=== PATIENT | female | born 1990 | race American Indian/Alaskan Native ===

== ENCOUNTER 2022-01-25 19:44 | Emergency (ER) | payer OTHER ==
[2022-01-25 21:52] LABS: Basophils % (Auto) 0.6 % (0.0-1.8); Eosinophils # (Auto) 0.1 K/mm3 (0.0-0.4); Eosinophils % (Auto) 1.6 % (0.0-4.3); Hematocrit 34.4 % (30.3-42.9); Hemoglobin 11.3 gm/dl (10.1-14.3); Lymphocytes # (Auto) 2.1 K/mm3 (1.2-5.4); Lymphocytes % (Auto) 27.7 % (13.4-35.0); Mean Corpuscular HGB Conc 33 % (30-34); Mean Corpuscular Volume 84 fl (79-97); Monocytes # (Auto) 0.5 K/mm3 (0.0-0.8); Monocytes % (Auto) 7.1 % (0.0-7.3); Platelet Count 260 K/mm3 (140-440); Red Blood Count 4.12 M/mm3 (3.65-5.03); Red Cell Distribution Width 13.1 % (13.2-15.2)
[2022-01-25 22:12] LABS: Alanine Aminotransferase 38 units/L (7-56); Albumin 4.1 g/dL (3.9-5); Blood Urea Nitrogen 5 mg/dL (7-17); Calcium 9.6 mg/dL (8.4-10.2); Hemolysis Index 9
[2022-01-25 22:28] LABS: BUN/Creatinine Ratio 13
--- NOTE | 2022-01-25 23:16 | Emergency Department Report ---
ED Abdominal Pain HPI - General Chief Complaint: Abdominal Pain Stated Complaint: STOMACH PAINS Time Seen by Provider: 01/25/22 23:04 Source: patient Mode of arrival: Ambulatory Limitations: No Limitations - History of Present Illness Initial Comments: Patient is 8 para 0 with 7 and miscarriages. Patient stated that she is 17 weeks . Patient presented to the ER complaining of lower abdominal pain, crampy nature with no radiation. Patient denied any vaginal bleeding. No fever or chills. MD Complaint: abdominal pain Severity scale (0 -10): 3 - Related Data Home Medications Medication Instructions Recorded Confirmed Last Taken No Known Home Medications [No 11/21/21 11/21/21 Unknown Reported Home Medications] Allergies Allergy/AdvReac Type Severity Reaction Status Date / Time No Known Allergies Allergy Verified 11/21/21 16:32 ED Review of Systems ROS: Stated complaint: STOMACH PAINS Other details as noted in HPI Comment: All other systems reviewed and negative Constitutional: denies: chills, fever Respiratory: denies: cough, shortness of breath, SOB with exertion, SOB at rest Cardiovascular: denies: chest pain, palpitations Gastrointestinal: abdominal pain. denies: nausea, vomiting, diarrhea, co nstipation, hematemesis, melena Musculoskeletal: back pain Neurological: denies: headache, weakness, numbness, paresthesias, confusion ED Past Medical Hx - Past Medical History Previous Medical History?: No - Surgical History Past Surgical History?: No - Social History Smoking Status: Never Smoker Substance Use Type: None - Medications Home Medications: Home Medications Medication Instructions Recorded Confirmed Last Taken Type No Known Home Medications [No 11/21/21 11/21/21 Unknown History Reported Home Medications] ED Physical Exam - General Limitations: No Limitations General appearance: alert, in no apparent distress - Head Head exam: Present: atraumatic, normocephalic, normal inspection - Eye Eye exam: Present: normal appearance - ENT ENT exam: Present: normal exam, normal orophraynx, mucous membranes moist - Neck Neck exam: Present: normal inspection, full ROM. Absent: tenderness, meningismus - Respiratory Respiratory exam: Present: normal lung sounds bilaterally - Cardiovascular Cardiovascular Exam: Present: regular rate, normal rhythm, normal heart sounds - GI/Abdominal GI/Abdominal exam: Present: soft, normal bowel sounds. Absent: distended, tenderness, guarding, rebound, rigid, organomegaly, mass, bruit, pulsatile mass, hernia - Extremities Exam Extremities exam: Present: normal inspection, full ROM, normal capillary refill. Absent: tenderness - Back Exam Back exam: Present: normal inspection, full ROM. Absent: CVA tenderness (R), CVA tenderness (L) - Neurological Exam Neurological exam: Present: alert, oriented X3, CN II-XII intact, normal gait, reflexes normal. Absent: motor sensory deficit - Psychiatric Psychiatric exam: Present: normal mood - Skin Skin exam: Present: warm, intact, normal color ED Course Vital Signs 01/25/22 21:28 Temperature 98.4 F Pulse Rate 82 Respiratory 18 Rate Blood Pressure 144/72 [Right] O2 Sat by Pulse 100 Oximetry ED Medical Decision Making - Lab Data Result diagrams: 01/25/22 21:37 01/25/22 21:37 - Radiology Data Radiology results: report reviewed - Medical Decision Making Patient is 8 para 0 with 7 and miscarriages. Patient stated that she is 17 weeks . Patient presented to the ER complaining of lower abdominal pain, crampy nature with no radiation. Patient denied any vaginal bleeding. No fever or chills. Labs reviewed and showed UTI. ultrasound showed a 17 weeks and 2-day intrauterine viable . Patient given prescription for Macrobid and advised to follow-up with her primary doctor in the next 2 to 3 days and to return to the ER if she develop any new symptoms. Critical care attestation.: If time is entered above; I have spent that time in minutes in the direct care of this critically ill patient, excluding procedure time. ED Disposition Clinical Impression: Abdominal pain affecting , UTI in Disposition: HOME / SELF CARE / HOMELESS Is pt being admited?: No Condition: Stable Instructions: Abdominal Pain (ED), Abdominal Pain During , and Urinary Tract Infection Referrals: [facility] [Provider Group] - 3-5 Days
[2022-01-25 23:55] LABS: Bacteria,Urine 1+ /HPF (Negative); Bilirubin,Urine NEG (Negative); Blood,Urine NEG (Negative); Color,Urine Yellow (Yellow); Protein,Urine <15 mg/dL mg/dL (Negative); Urobilinogen,Urine < 2.0 mg/dL (<2.0)
--- NOTE | 2022-01-26 00:30 | Ultrasound Report ---
US OB >= 14 weeks Fetus INDICATION / CLINICAL INFORMATION: abdominal pain/17 wks COMPARISON: Limited OB ultrasound 11/22/2021 TECHNIQUE: Using a transcutaneous probe, multiple grayscale, color Doppler, and spectral Doppler imag es of the uterus and fetus were captured and stored. FINDINGS: Based on last menstrual period of 09/27/2021, the clinical estimation of gestational age is 17 weeks 1 day. A single cephalic fetus with heart rate of 153 bpm is demonstrated. Qualitative evaluation of amniotic fluid suggests normal amount. Placenta lies posteriorly. Placental margins appear intact. Cervical canal measures 2.7 cm. The internal os appears closed. Placenta does not overlie the os. Biparietal Diameter = 3.9 cm = 17, 6 weeks, days Head Circumference = 14.2 cm = 17, 3 weeks, days Abdominal Circumference = 12.3 cm = 18, 0 weeks, days Femur Length = 2.3 cm = 17, 0 weeks, days Average Ultrasound Age (AUA) = 17, 4 weeks, days. EDC 07/01/2022. Estimated weight is 198 g. IMPRESSION: 1. Single cephalic fetus with active heart rate. 2. Endocervical canal measures 2.7 cm, the internal os appears closed. Signer Name: Schuyler Burr II, MD Signed: 01/26/2022 12:26 AM Workstation Name: [id number]
[2022-01-26 03:30] VITALS: BP 142/69
== END 2022-01-26 01:30 | disposition home or self-care (01) ==
LOC: ED 19:44
DX: O26.892 Other specified pregnancy related conditions, second trimester (principal); R10.30 Lower abdominal pain, unspecified; O23.42 Unspecified infection of urinary tract in pregnancy, second trimester; Z3A.14 14 weeks gestation of pregnancy
CPT/HCPCS: 36415; 76805; 80053; 81001; 83690; 84702; 85025; 99283

== ENCOUNTER 2022-04-14 22:05 | Outpatient (CLI) | payer OTHER ==
[2022-04-14 22:58] VITALS: BP 104/56
== END 2022-04-14 23:20 | disposition home or self-care (01) ==
LOC: TRG 22:05 → APU 22:07 → TRG 23:20
PROVIDERS: ATTEND Obstetrics & Gynecology
DX: O26.893 Other specified pregnancy related conditions, third trimester (principal); R07.9 Chest pain, unspecified; Z3A.28 28 weeks gestation of pregnancy
CPT/HCPCS: 59025

== ENCOUNTER 2022-06-24 19:36 | Inpatient (IN) | payer OTHER ==
[2022-06-24] MEDS ORDERED: ePHEDrine SULFATE 50 MG/1 ML INJ IV PRN (20:06)
[2022-06-24] MEDS ORDERED: LIDOCAINE (2%) 20 MG/1 ML VIAL 20 ML MDV INFILTRATI ONE (20:06)
[2022-06-24] MEDS ORDERED: ACETAMINOPHEN 325 MG TAB PO PRN (20:06)
[2022-06-24] MEDS ORDERED: miSOPROStol 200 MCG TAB PR PRN (20:06)
[2022-06-24] MEDS ORDERED: MINERAL OIL 30 ML ORAL LIQD PO PRN (20:06)
[2022-06-24] MEDS ORDERED: fentaNYL 100 MCG/2 ML INJ IV PRN (20:06)
[2022-06-24] MEDS ORDERED: NalbUPHINE 10 MG/1 ML INJ IV PRN (20:06)
[2022-06-24] MEDS ORDERED: LOPERAMIDE 2 MG CAP PO PRN (20:06)
[2022-06-24] MEDS ORDERED: CARBOPROST TROMETHAMINE 250 MCG/1 ML INJ IM PRN (20:06)
[2022-06-24] MEDS ORDERED: OXYTOCIN 10 UNIT/1 ML INJ IM PRN (20:06)
[2022-06-24] MEDS ORDERED: ONDANSETRON 4 MG/2 ML INJ IV PRN (20:06)
[2022-06-24] MEDS ORDERED: TERBUTALINE 1 MG/1 ML INJ SUB-Q PRN (20:06)
[2022-06-24] MEDS ORDERED: METHYLERGONOVINE MALEATE 0.2 MG/ML VIAL IM PRN (20:06)
--- NOTE | 2022-06-24 20:11 | History and Physical Report ---
History of Present Illness Date of examination: 06/24/22 Chief complaint: SROM @ term History of present illness: EDC Calculations by LMP: 07/04/2022 Past History : 8 Term Births: 0 Premature Births: 0 Living Children: 0 Para: 0 Mult. Births: 0 Prev : 0 Prev. attempt? 0 Aborta: 7 Elect. Ab: 4 Spont. Ab: 2 Ectopics: 1 # 1 Delivery date: 2010 Delivery type: SAB # 2 Delivery date: 2012 Delivery type: EAB # 3 Delivery date: 2012 Delivery type: EAB # 4 Delivery date: 2011 Delivery type: SAB # 5 Delivery date: 2017 Delivery type: ectopic Comments: s/p had left tube removed # 6 Delivery date: 2011 Delivery type: EAB # 7 Delivery date: 02/2020 Weeks Gestation: 12 Delivery type: EAB Comments: D&C, no complications. 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 % Sun Exposure: rarely No Dietary Counseling Reason: pn yes Past Medical History Anesthesia Complications: negative Anemia: negative Autoimmune Disorder: negative Bleeding Disorder: negative Blood Transfusions: negative Breast Disease: negative Diabetes: negative Heart Disease: negative Hypertension: negative Hepatitis/Liver Disease: negative Kidney Disease/UTI: negative Neurologic/Epilepsy/Migraines: negative Phlebitis/Varicosities: negative Psychiatric: negative Pulmonary Disease/Asthma: negative Thyroid Disease: negative Hospitalizations: negative Surgery (Non-novelty dipper): negative Abnormal PAP: negative EDWINA Exposure: negative Infertility: negative Uterine Anomaly: negative Uterine Surgery (not C/S): negative Other Gynecologic Problems: negative 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 Infection History HIV Risk Eval: no Personal hx. of genital herpes: yes Partner hx. of genital herpes: no Rash, Viral, or Febrile illness since last LMP? no Varicella/Chicken Pox Status: Previous Disease TB Risk: no Genetic History Congenital Heart Defect: Mom: no Dad: no Pollo Disease: Mom: no Dad: no Thalassemia Mom: no Dad: no Neural Tube Defect Mom: no Dad: no Down's Syndrome Mom: no Dad: no Rogelio-Sachs Mom: no Dad: no Sickle Cell Disease/Trait Mom: no Dad: no Hemophilia Mom: no Dad: no Muscular Dystrophy Mom: no Dad: no Cystic Fibrosis Mom: no Dad: no [place] Chorea Mom: no Dad: no Mental Retardation Mom: no Dad: no Fragile X Mom: no Dad: no Other Genetic/Chromosomal Disorder Mom: no Dad: no Child w/other defect Mom: no Dad: no Enviromental Exposures Xray Exposure: no Medication, drug, or alcohol use since LMP: no Chemical/Other Exposure: no Exposure to Cat Liter: no Hx of Parvovirus (Fifth Disease): no Occupational Exposure to Children: none Current Allergies (reviewed today): No known allergies Past History Past Medical History: other (see HPI) Past Surgical History: other (HPI) SILO MAN History: syphilis (treated), other (see HPI) Family/Genetic History: other (see HPI) Social history: no significant social history - Obstetrical History Expected Date of Delivery: 07/04/22 Actual Gestation: 38 Week(s) 4 Day(s) : 8 Para: 0 Hx # Term Pregnancies: 0 Number of Pregnancies: 0 Spontaneous Abortions: 3 Induced : 4 Number of Living Children: 0 Medications and Allergies Allergies Allergy/AdvReac Type Severity Reaction Status Date / Time No Known Allergies Allergy Verified 11/21/21 16:32 Home Medications Medication Instructions Recorded Confirmed Last Taken Type Nitrofurantoin [place]/M-Cryst 100 mg PO Q12HR #14 capsule 01/26/22 Unknown Rx [Macrobid CAP] Active Meds: Active Medications Acetaminophen (Acetaminophen 325 Mg Tab) 650 mg PO Q4H PRN PRN Reason: Pain, Mild (1-3) Carboprost Tromethamine (Carboprost Tromethamine 250 Mcg/1 Ml Inj) 250 mcg IM ONCE PRN PRN Reason: Uterine Bleeding Ephedrine Sulfate (Ephedrine Sulfate 50 Mg/1 Ml Inj) 10 mg IV Q2M PRN PRN Reason: Hypotension Fentanyl (Fentanyl 100 Mcg/2 Ml Inj) 100 mcg IV Q2H PRN PRN Reason: Pain,Severe (7-10) LABOR PAIN Oxytocin/Sodium Chloride (Pitocin/Ns 30 Unit/500ml) 30 units in 500 mls @ 2 mls/hr IV TITR ANDREY; Protocol Lactated Ringer's (Lactated Ringers) 1,000 mls @ 125 mls/hr IV DIRECT ANDREY Oxytocin/Sodium Chloride (Pitocin/Ns 30 Unit/500ml) 30 units in 500 mls @ 40 mls/hr IV TITR ANDREY; Protocol Ampicillin Sodium (Ampicillin/Ns 1 Gm/50 Ml) 1 gm in 50 mls @ 100 mls/hr IV Q4H ANDREY; Protocol Ampicillin Sodium (Ampicillin/Ns 2 Gm/100 Ml) 2 gm in 100 mls @ 100 mls/hr IV ONCE ONE; Protocol Stop: 06/24/22 21:05 Lidocaine (Lidocaine (2%) 20 Mg/1 Ml Vial 20 Ml Mdv) 20 ml INFILTRATI ONCE ONE Stop: 06/24/22 20:07 Loperamide HCl (Loperamide 2 Mg Cap) 2 mg PO ONCE PRN PRN Reason: give with Hemabate Methylergonovine Maleate (Methylergonovine Maleate 0.2 Mg/Ml Vial) 0.2 mg IM ONCE PRN PRN Reason: Uterine Bleeding Mineral Oil (Mineral Oil 30 Ml Oral Liqd) 30 ml PO QHS PRN PRN Reason: Constipation Misoprostol (Misoprostol 200 Mcg Tab) 800 mcg VT ONCE PRN PRN Reason: Uterine Bleeding Nalbuphine HCl (Nalbuphine 10 Mg/1 Ml Inj) 10 mg IV Q2H PRN PRN Reason: Pain, Moderate (4-6) Ondansetron HCl (Ondansetron 4 Mg/2 Ml Inj) 4 mg IV Q8H PRN PRN Reason: Nausea And Vomiting Oxytocin (Oxytocin 10 Unit/1 Ml Inj) 10 unit IM ONCE PRN PRN Reason: Uterine Bleeding Terbutaline Sulfate (Terbutaline 1 Mg/1 Ml Inj) 0.25 mg SUB-Q ONCE PRN PRN Reason: Hyperstimulation/Hypertonicity Review of Systems All systems: negative - Physical Exam Breasts: Positive: normal Cardiovascular: Regular rate Lungs: Positive: Normal air movement Abdomen: Positive: normal appearance, soft Genitourinary (Female): Positive: normal external genitalia, normal perenium Vulva: both: normal Vagina: Positive: normal moisture (clear amniotic fluid) Uterus: Positive: normal size, normal contour Anus/Rectum: Positive: normal perianal skin Extremities: Positive: normal Deep Tendon Reflex Grade: Normal +2 - Obstetrical FHR: category 1 Uterine Contraction Monitor Mode: External Cervical Dilatation: 4 (slightly posterior) Cervical Effacement Percentage: 80 station: -1 Uterine Contraction Pattern: Regular Uterine Tone Measurement Phase: Contraction Uterine Contraction Intensity: Moderate Results All other labs normal. Assessment and Plan 31y/o admitted @ 38 weeks for labor, SROM @ 1700 tonight. Admission orders in EMR. Epidural PRN when pt desires. - Patient Problems (1) 38 weeks gestation of Current Visit: Yes Status: Acute (2) SROM (spontaneous rupture of membranes) Current Visit: Yes Status: Acute
[2022-06-24] MEDS ORDERED: OXYTOCIN DRIP 30 UNITS/500 ML BAG IV SCH ×2 (21:00)
[2022-06-24] MEDS ORDERED: AMPICILLIN/NS 2 GM/100 ML 2 GM/100 ML BAG IV ONE (21:06)
[2022-06-24 22:42] LABS: Hematocrit 30.9 % (30.3-42.9); Hemoglobin 10.1 gm/dl (10.1-14.3); Mean Corpuscular HGB Conc 33 % (30-34); Mean Corpuscular Volume 76 fl (79-97); Platelet Count 218 K/mm3 (140-440); Red Blood Count 4.05 M/mm3 (3.65-5.03); Red Cell Distribution Width 15.2 % (13.2-15.2)
[2022-06-25] MEDS: LACTATED RINGERS 1,000 ML IV SCH ×3 (00:04→09:15)
--- NOTE | 2022-06-25 00:28 | Anesthesia Consultation ---
Anesthesia Consult and Med Hx Date of service: 06/25/22 - Airway Anesthetic Teeth Evaluation: Good ROM Head & Neck: Adequate Mental/Hyoid Distance: Adequate Mallampati Class: Class II Intubation Access Assessment: Probably Good - Pulmonary Exam CTA: Yes - Cardiac Exam Cardiac Exam: RRR - Pre-Operative Health Status ASA Pre-Surgery Classification: ASA2 Proposed Anesthetic Plan: Epidural - Pulmonary Hx Smoking: No Hx Asthma: No - Cardiovascular System Hx Hypertension: No - Central Nervous System Hx Seizures: No CVA: No Hx Psychiatric Problems: No - Endocrine Hx Renal Disease: No Hx Liver Disease: No Hx Non-Insulin Dependent Diabetes: No Hx Hypothyroidism: No Hx Hyperthyroidism: No - Hematic Hx Anemia: No Hx Sickle Cell Disease: No - Other Systems Hx Alcohol Use: No Hx Substance Use: No Hx Cancer: No Hx Obesity: No - Additional Comments Anesthesia Medical History Comments: no hx of anesthetic complications
--- NOTE | 2022-06-25 00:29 | Progress Note ---
Labor Epidural - Labor Epidural Start Time: 23:59 Stop Time: 00:09 Performed by:: HUSAM TELLEZ Procedure: Patient is requesting epidural for labor pain. H&P and labs reviewed. Procedure explained, questions answered, consent obtained. Patient placed in sitting position with monitors applied. Timeout performed immediately before start of procedure. Prep/drape in usual sterile fashion. Skin localized 3 mL 1% lidocaine at L[3]-L[4] interspace. 17-gauge Touhy epidural needle advanced to AVA with saline at [8] cm. No blood/CSF noted via epidural needle [id number]. Epidural catheter advanced to [14] cm. Negative aspiration for blood and CSF via catheter, negative response to test dose 3 ml 1.5% lidocaine w/ Epi. Sterile dressing applied followed by tape reinforcement. Patient tolerated procedure well. No immediate complications noted.
[2022-06-25] MEDS ORDERED: fentaNYL-BUPIV 2 MCG/ML-0.125% 200 MCG/100 ML BAG EPIDURAL ONE (00:38)
[2022-06-25] MEDS ORDERED: AMPICILLIN/NS 1 GM/50 ML 1 GM/50 ML BAG IV SCH (01:00)
--- NOTE | 2022-06-25 06:13 | Progress Note ---
Assessment and Plan Patient resting w/o complaints, epidural working well. SVE 6.5/90/-1, rn to increase pitocin. Pelvis feels adequate for size of baby. Anticipate - Patient Problems (1) 38 weeks gestation of Current Visit: Yes Status: Acute (2) SROM (spontaneous rupture of membranes) Current Visit: Yes Status: Acute Subjective - Subjective Date of service: 06/25/22 Principal diagnosis: IUP @ 38+5wk; SROM Interval history: EDC Calculations by LMP: 07/04/2022 Past History : 8 Term Births: 0 Premature Births: 0 Living Children: 0 Para: 0 Mult. Births: 0 Prev : 0 Prev. attempt? 0 Aborta: 7 Elect. Ab: 4 Spont. Ab: 2 Ectopics: 1 # 1 Delivery date: 2010 Delivery type: SAB # 2 Delivery date: 2012 Delivery type: EAB # 3 Delivery date: 2012 Delivery type: EAB # 4 Delivery date: 2011 Delivery type: SAB # 5 Delivery date: 2017 Delivery type: ectopic Comments: s/p had left tube removed # 6 Delivery date: 2011 Delivery type: EAB # 7 Delivery date: 02/2020 Weeks Gestation: 12 Delivery type: EAB Comments: D&C, no complications. 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 Risk Factors: Smoked Tobacco Use: Never smoker Smokeless Tobacco Use: Never Counseled to Quit/Cut Down: yes Passive Smoke Exposure: no HIV High Risk Behavior: no Exercise: yes Times/wk: 3 Type of Exercise: Walking Seatbelt Use: preg-student counselor % Sun Exposure: rarely No Dietary Counseling Reason: pn yes Past Medical History Anesthesia Complications: negative Anemia: negative Autoimmune Disorder: negative Bleeding Disorder: negative Blood Transfusions: negative Breast Disease: negative Diabetes: negative Heart Disease: negative Hypertension: negative Hepatitis/Liver Disease: negative Kidney Disease/UTI: negative Neurologic/Epilepsy/Migraines: negative Phlebitis/Varicosities: negative Psychiatric: negative Pulmonary Disease/Asthma: negative Thyroid Disease: negative Hospitalizations: negative Surgery (Non-track greaser): negative Abnormal PAP: negative EDWINA Exposure: negative Infertility: negative Uterine Anomaly: negative Uterine Surgery (not C/S): negative Other Gynecologic Problems: negative 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 Infection History HIV Risk Eval: no Personal hx. of genital herpes: yes Partner hx. of genital herpes: no Rash, Viral, or Febrile illness since last LMP? no Varicella/Chicken Pox Status: Previous Disease TB Risk: no Genetic History Congenital Heart Defect: Mom: no Dad: no Pollo Disease: Mom: no Dad: no Thalassemia Mom: no Dad: no Neural Tube Defect Mom: no Dad: no Down's Syndrome Mom: no Dad: no Rogelio-Sachs Mom: no Dad: no Sickle Cell Disease/Trait Mom: no Dad: no Hemophilia Mom: no Dad: no Muscular Dystrophy Mom: no Dad: no Cystic Fibrosis Mom: no Dad: no Yelena Chorea Mom: no Dad: no Mental Retardation Mom: no Dad: no Fragile X Mom: no Dad: no Other Genetic/Chromosomal Disorder Mom: no Dad: no Child w/other defect Mom: no Dad: no Enviromental Exposures Xray Exposure: no Medication, drug, or alcohol use since LMP: no Chemical/Other Exposure: no Exposure to Cat Liter: no Hx of Parvovirus (Fifth Disease): no Occupational Exposure to Children: none Current Allergies (reviewed today): No known allergies Patient reports: no new complaints (comfortable with epidural) Objective - Vital Signs Vital Signs: Vital Signs - 12hr 06/24/22 06/24/22 06/24/22 21:40 21:45 21:50 Temperature Pulse Rate 106 H 104 H 112 H Respiratory Rate Blood Pressure O2 Sat by Pulse 99 99 100 Oximetry O2 Sat by Pulse Oximetry [ Bilateral] 06/24/22 06/24/22 06/24/22 21:55 22:00 22:05 Temperature Pulse Rate 104 H 109 H 109 H Respiratory Rate Blood Pressure O2 Sat by Pulse 100 99 99 Oximetry O2 Sat by Pulse Oximetry [ Bilateral] 06/24/22 06/24/22 06/24/22 22:10 22:15 22:20 Temperature Pulse Rate 98 H 99 H 95 H Respiratory Rate Blood Pressure O2 Sat by Pulse 100 99 99 Oximetry O2 Sat by Pulse Oximetry [ Bilateral] 06/24/22 06/24/22 06/24/22 22:25 22:30 22:35 Temperature Pulse Rate 118 H 103 H 100 H Respiratory Rate Blood Pressure O2 Sat by Pulse 100 100 100 Oximetry O2 Sat by Pulse Oximetry [ Bilateral] 06/24/22 06/24/22 06/24/22 22:40 22:45 22:50 Temperature Pulse Rate 99 H 99 H 100 H Respiratory Rate Blood Pressure O2 Sat by Pulse 100 100 100 Oximetry O2 Sat by Pulse Oximetry [ Bilateral] 06/24/22 06/24/22 06/24/22 22:55 23:11 23:12 Temperature 97.3 F L Pulse Rate 95 H 112 H Respiratory Rate Blood Pressure O2 Sat by Pulse 100 99 Oximetry O2 Sat by Pulse Oximetry [ Bilateral] 06/24/22 06/24/22 06/24/22 23:16 23:21 23:26 Temperature Pulse Rate 116 H 105 H 118 H Respiratory Rate Blood Pressure O2 Sat by Pulse 100 100 100 Oximetry O2 Sat by Pulse Oximetry [ Bilateral] 06/24/22 06/24/22 06/24/22 23:31 23:36 23:41 Temperature Pulse Rate 101 H 106 H 116 H Respiratory Rate Blood Pressure O2 Sat by Pulse 100 99 100 Oximetry O2 Sat by Pulse Oximetry [ Bilateral] 06/24/22 06/24/22 06/24/22 23:46 23:51 23:56 Temperature Pulse Rate 112 H 109 H 108 H Respiratory Rate Blood Pressure O2 Sat by Pulse 99 100 99 Oximetry O2 Sat by Pulse Oximetry [ Bilateral] 06/25/22 06/25/22 06/25/22 00:01 00:06 00:11 Temperature Pulse Rate 116 H 131 H 107 H Respiratory Rate Blood Pressure O2 Sat by Pulse 99 99 99 Oximetry O2 Sat by Pulse Oximetry [ Bilateral] 06/25/22 06/25/22 06/25/22 00:15 00:16 00:19 Temperature Pulse Rate 100 H 99 H 96 H Respiratory Rate Blood Pressure 133/71 132/74 O2 Sat by Pulse 100 Oximetry O2 Sat by Pulse Oximetry [ Bilateral] 06/25/22 06/25/22 06/25/22 00:21 00:23 00:26 Temperature Pulse Rate 96 H 96 H 101 H Respiratory Rate Blood Pressure 120/65 O2 Sat by Pulse 99 99 Oximetry O2 Sat by Pulse Oximetry [ Bilateral] 06/25/22 06/25/22 06/25/22 00:27 00:31 00:36 Temperature Pulse Rate 100 H 99 H 99 H Respiratory Rate Blood Pressure 110/57 110/58 94/54 O2 Sat by Pulse 98 98 Oximetry O2 Sat by Pulse Oximetry [ Bilateral] 06/25/22 06/25/22 06/25/22 00:40 00:41 00:43 Temperature Pulse Rate 101 H 95 H 96 H Respiratory Rate Blood Pressure 82/45 120/63 O2 Sat by Pulse 98 Oximetry O2 Sat by Pulse Oximetry [ Bilateral] 06/25/22 06/25/22 06/25/22 00:46 00:48 00:51 Temperature Pulse Rate 93 H 92 H 93 H Respiratory Rate Blood Pressure 89/53 98/54 O2 Sat by Pulse 99 100 Oximetry O2 Sat by Pulse Oximetry [ Bilateral] 06/25/22 06/25/22 06/25/22 00:55 00:56 00:59 Temperature Pulse Rate 101 H 104 H 112 H Respiratory Rate Blood Pressure 91/49 97/52 O2 Sat by Pulse 100 Oximetry O2 Sat by Pulse Oximetry [ Bilateral] 06/25/22 06/25/22 06/25/22 01:01 01:05 01:06 Temperature Pulse Rate 100 H 113 H 103 H Respiratory Rate Blood Pressure 96/54 O2 Sat by Pulse 100 100 Oximetry O2 Sat by Pulse Oximetry [ Bilateral] 06/25/22 06/25/22 06/25/22 01:07 01:11 01:16 Temperature Pulse Rate 97 H 111 H 121 H Respiratory Rate Blood Pressure 102/54 O2 Sat by Pulse 100 100 Oximetry O2 Sat by Pulse Oximetry [ Bilateral] 06/25/22 06/25/22 06/25/22 01:21 01:23 01:26 Temperature Pulse Rate 114 H 104 H 113 H Respiratory 18 Rate Blood Pressure 97/50 O2 Sat by Pulse 100 100 Oximetry O2 Sat by Pulse Oximetry [ Bilateral] 06/25/22 06/25/22 06/25/22 01:27 01:31 01:36 Temperature Pulse Rate 107 H 105 H Respiratory Rate Blood Pressure O2 Sat by Pulse 100 100 Oximetry O2 Sat by Pulse 100 Oximetry [ Bilateral] 06/25/22 06/25/22 06/25/22 01:38 01:40 01:41 Temperature Pulse Rate 108 H 101 H 107 H Respiratory Rate Blood Pressure 88/46 92/51 O2 Sat by Pulse 100 Oximetry O2 Sat by Pulse Oximetry [ Bilateral] 06/25/22 06/25/22 06/25/22 01:46 01:51 01:54 Temperature Pulse Rate 122 H 109 H 122 H Respiratory Rate Blood Pressure 88/44 O2 Sat by Pulse 100 100 Oximetry O2 Sat by Pulse Oximetry [ Bilateral] 06/25/22 06/25/22 06/25/22 01:56 02:01 02:06 Temperature Pulse Rate 109 H 109 H 112 H Respiratory Rate Blood Pressure O2 Sat by Pulse 100 100 100 Oximetry O2 Sat by Pulse Oximetry [ Bilateral] 06/25/22 06/25/22 06/25/22 02:08 02:11 02:16 Temperature Pulse Rate 109 H 110 H 120 H Respiratory Rate Blood Pressure 80/41 O2 Sat by Pulse 100 100 Oximetry O2 Sat by Pulse Oximetry [ Bilateral] 06/25/22 06/25/22 06/25/22 02:21 02:23 02:26 Temperature Pulse Rate 119 H 100 H 105 H Respiratory Rate Blood Pressure 117/56 O2 Sat by Pulse 100 100 Oximetry O2 Sat by Pulse Oximetry [ Bilateral] 06/25/22 06/25/22 06/25/22 02:31 02:36 02:38 Temperature Pulse Rate 111 H 111 H 116 H Respiratory Rate Blood Pressure 91/53 O2 Sat by Pulse 100 100 Oximetry O2 Sat by Pulse Oximetry [ Bilateral] 06/25/22 06/25/22 06/25/22 02:41 02:46 02:51 Temperature Pulse Rate 114 H 111 H 99 H Respiratory Rate Blood Pressure O2 Sat by Pulse 100 100 100 Oximetry O2 Sat by Pulse Oximetry [ Bilateral] 06/25/22 06/25/22 06/25/22 02:53 02:56 03:01 Temperature Pulse Rate 101 H 109 H 121 H Respiratory Rate Blood Pressure 101/59 O2 Sat by Pulse 100 100 Oximetry O2 Sat by Pulse Oximetry [ Bilateral] 06/25/22 06/25/22 06/25/22 03:06 03:08 03:11 Temperature Pulse Rate 103 H 109 H 109 H Respiratory Rate Blood Pressure 105/55 O2 Sat by Pulse 100 100 Oximetry O2 Sat by Pulse Oximetry [ Bilateral] 06/25/22 06/25/22 06/25/22 03:16 03:21 03:26 Temperature Pulse Rate 105 H 115 H 111 H Respiratory Rate Blood Pressure O2 Sat by Pulse 100 100 100 Oximetry O2 Sat by Pulse Oximetry [ Bilateral] 06/25/22 06/25/22 06/25/22 03:31 03:36 03:38 Temperature Pulse Rate 109 H 116 H 105 H Respiratory Rate Blood Pressure 116/52 O2 Sat by Pulse 100 100 Oximetry O2 Sat by Pulse Oximetry [ Bilateral] 06/25/22 06/25/22 06/25/22 03:41 03:46 03:51 Temperature Pulse Rate 119 H 110 H 103 H Respiratory Rate Blood Pressure O2 Sat by Pulse 100 100 100 Oximetry O2 Sat by Pulse Oximetry [ Bilateral] 06/25/22 06/25/22 06/25/22 03:56 04:01 04:06 Temperature Pulse Rate 103 H 101 H 104 H Respiratory Rate Blood Pressure O2 Sat by Pulse 100 100 100 Oximetry O2 Sat by Pulse Oximetry [ Bilateral] 06/25/22 06/25/22 06/25/22 04:11 04:16 04:21 Temperature Pulse Rate 106 H 110 H 106 H Respiratory Rate Blood Pressure 106/59 O2 Sat by Pulse 100 100 100 Oximetry O2 Sat by Pulse Oximetry [ Bilateral] 06/25/22 06/25/22 06/25/22 04:26 04:31 04:36 Temperature Pulse Rate 104 H 114 H 100 H Respiratory Rate Blood Pressure O2 Sat by Pulse 100 100 100 Oximetry O2 Sat by Pulse Oximetry [ Bilateral] 06/25/22 06/25/22 06/25/22 04:41 04:45 04:46 Temperature Pulse Rate 107 H 102 H 104 H Respiratory Rate Blood Pressure 123/65 O2 Sat by Pulse 100 99 Oximetry O2 Sat by Pulse Oximetry [ Bilateral] 06/25/22 06/25/22 06/25/22 04:51 04:56 05:01 Temperature Pulse Rate 105 H 106 H 100 H Respiratory Rate Blood Pressure O2 Sat by Pulse 100 99 100 Oximetry O2 Sat by Pulse Oximetry [ Bilateral] 06/25/22 06/25/22 06/25/22 05:06 05:11 05:16 Temperature Pulse Rate 105 H 102 H 102 H Respiratory Rate Blood Pressure 102/55 O2 Sat by Pulse 100 100 100 Oximetry O2 Sat by Pulse Oximetry [ Bilateral] 06/25/22 06/25/22 06/25/22 05:21 05:26 05:31 Temperature Pulse Rate 94 H 98 H 98 H Respiratory Rate Blood Pressure O2 Sat by Pulse 100 100 100 Oximetry O2 Sat by Pulse Oximetry [ Bilateral] 06/25/22 06/25/22 06/25/22 05:36 05:41 05:45 Temperature Pulse Rate 97 H 97 H 100 H Respiratory Rate Blood Pressure 123/59 O2 Sat by Pulse 100 100 Oximetry O2 Sat by Pulse Oximetry [ Bilateral] 06/25/22 06/25/22 06/25/22 05:46 05:51 05:56 Temperature Pulse Rate 100 H 100 H 99 H Respiratory Rate Blood Pressure O2 Sat by Pulse 100 100 100 Oximetry O2 Sat by Pulse Oximetry [ Bilateral] 06/25/22 06:01 Temperature Pulse Rate 104 H Respiratory Rate Blood Pressure O2 Sat by Pulse 100 Oximetry O2 Sat by Pulse Oximetry [ Bilateral] - Exam Breasts: normal Cardiovascular: Regular rate Lungs: Normal air movement Abdomen: Present: normal appearance, soft Vulva: both: normal Uterus: Present: normal FHR: category 1 Uterine Contraction Monitor Mode: External Cervical Dilatation: 6.5 Cervical Effacement Percentage: 90 station: -1 Uterine Contraction Frequency (min): 3-5 Uterine Contraction Duration: 60 Uterine Contraction Pattern: Regular Uterine Tone Measurement Phase: Contraction Uterine Contraction Intensity: Moderate Extremities: normal Deep Tendon Reflex Grade: Normal +2 - Labs Labs: Abnormal Labs 06/24/22 22:20 MCV 76 L MCH 25 L Laboratory Results - last 24 hr 06/24/22 06/24/22 06/24/22 22:20 22:20 22:20 WBC 9.8 RBC 4.05 Hgb 10.1 Hct 30.9 MCV 76 L MCH 25 L MCHC 33 RDW 15.2 Plt Count 218 Syphilis IgG/IgM Ab Nonreactive Blood Type B POSITIVE Antibody Screen Negative
[2022-06-25] MEDS ORDERED: NALOXONE 0.4 MG/1 ML INJ IV PRN (07:05)
[2022-06-25] MEDS ORDERED: ePHEDrine SULFATE 50 MG/1 ML INJ IV PRN (07:05)
--- NOTE | 2022-06-25 07:25 | Progress Note ---
Assessment and Plan A: 31 y.o. @ 38.5 wks, SROM. - Patient Problems (1) 38 weeks gestation of Current Visit: Yes Status: Acute Plan to address problem: Continue to monitor status through EFM. (2) SROM (spontaneous rupture of membranes) Current Visit: Yes Status: Acute Plan to address problem: Continue with Pitiocin augmentation. Limit vaginal exams. Anticipate . Subjective - Subjective Date of service: 06/25/22 Principal diagnosis: IUP @ 38+5wk; SROM Interval history: Pt comfortable with epidural. Patient reports: loss of fluid, movement normal Objective - Vital Signs Vital Signs: Vital Signs - 12hr 06/24/22 06/24/22 06/24/22 21:40 21:45 21:50 Temperature Pulse Rate 106 H 104 H 112 H Respiratory Rate Blood Pressure O2 Sat by Pulse 99 99 100 Oximetry O2 Sat by Pulse Oximetry [ Bilateral] 06/24/22 06/24/22 06/24/22 21:55 22:00 22:05 Temperature Pulse Rate 104 H 109 H 109 H Respiratory Rate Blood Pressure O2 Sat by Pulse 100 99 99 Oximetry O2 Sat by Pulse Oximetry [ Bilateral] 06/24/22 06/24/22 06/24/22 22:10 22:15 22:20 Temperature Pulse Rate 98 H 99 H 95 H Respiratory Rate Blood Pressure O2 Sat by Pulse 100 99 99 Oximetry O2 Sat by Pulse Oximetry [ Bilateral] 06/24/22 06/24/22 06/24/22 22:25 22:30 22:35 Temperature Pulse Rate 118 H 103 H 100 H Respiratory Rate Blood Pressure O2 Sat by Pulse 100 100 100 Oximetry O2 Sat by Pulse Oximetry [ Bilateral] 06/24/22 06/24/22 06/24/22 22:40 22:45 22:50 Temperature Pulse Rate 99 H 99 H 100 H Respiratory Rate Blood Pressure O2 Sat by Pulse 100 100 100 Oximetry O2 Sat by Pulse Oximetry [ Bilateral] 06/24/22 06/24/22 06/24/22 22:55 23:11 23:12 Temperature 97.3 F L Pulse Rate 95 H 112 H Respiratory Rate Blood Pressure O2 Sat by Pulse 100 99 Oximetry O2 Sat by Pulse Oximetry [ Bilateral] 06/24/22 06/24/22 06/24/22 23:16 23:21 23:26 Temperature Pulse Rate 116 H 105 H 118 H Respiratory Rate Blood Pressure O2 Sat by Pulse 100 100 100 Oximetry O2 Sat by Pulse Oximetry [ Bilateral] 06/24/22 06/24/22 06/24/22 23:31 23:36 23:41 Temperature Pulse Rate 101 H 106 H 116 H Respiratory Rate Blood Pressure O2 Sat by Pulse 100 99 100 Oximetry O2 Sat by Pulse Oximetry [ Bilateral] 06/24/22 06/24/22 06/24/22 23:46 23:51 23:56 Temperature Pulse Rate 112 H 109 H 108 H Respiratory Rate Blood Pressure O2 Sat by Pulse 99 100 99 Oximetry O2 Sat by Pulse Oximetry [ Bilateral] 06/25/22 06/25/22 06/25/22 00:01 00:06 00:11 Temperature Pulse Rate 116 H 131 H 107 H Respiratory Rate Blood Pressure O2 Sat by Pulse 99 99 99 Oximetry O2 Sat by Pulse Oximetry [ Bilateral] 06/25/22 06/25/22 06/25/22 00:15 00:16 00:19 Temperature Pulse Rate 100 H 99 H 96 H Respiratory Rate Blood Pressure 133/71 132/74 O2 Sat by Pulse 100 Oximetry O2 Sat by Pulse Oximetry [ Bilateral] 06/25/22 06/25/22 06/25/22 00:21 00:23 00:26 Temperature Pulse Rate 96 H 96 H 101 H Respiratory Rate Blood Pressure 120/65 O2 Sat by Pulse 99 99 Oximetry O2 Sat by Pulse Oximetry [ Bilateral] 06/25/22 06/25/22 06/25/22 00:27 00:31 00:36 Temperature Pulse Rate 100 H 99 H 99 H Respiratory Rate Blood Pressure 110/57 110/58 94/54 O2 Sat by Pulse 98 98 Oximetry O2 Sat by Pulse Oximetry [ Bilateral] 06/25/22 06/25/22 06/25/22 00:40 00:41 00:43 Temperature Pulse Rate 101 H 95 H 96 H Respiratory Rate Blood Pressure 82/45 120/63 O2 Sat by Pulse 98 Oximetry O2 Sat by Pulse Oximetry [ Bilateral] 06/25/22 06/25/22 06/25/22 00:46 00:48 00:51 Temperature Pulse Rate 93 H 92 H 93 H Respiratory Rate Blood Pressure 89/53 98/54 O2 Sat by Pulse 99 100 Oximetry O2 Sat by Pulse Oximetry [ Bilateral] 06/25/22 06/25/2222 00:55 00:56 00:59 Temperature Pulse Rate 101 H 104 H 112 H Respiratory Rate Blood Pressure 91/49 97/52 O2 Sat by Pulse 100 Oximetry O2 Sat by Pulse Oximetry [ Bilateral] 06/25/22 06/25/22 06/25/22 01:01 01:05 01:06 Temperature Pulse Rate 100 H 113 H 103 H Respiratory Rate Blood Pressure 96/54 O2 Sat by Pulse 100 100 Oximetry O2 Sat by Pulse Oximetry [ Bilateral] 06/25/22 06/25/22 06/25/22 01:07 01:11 01:16 Temperature Pulse Rate 97 H 111 H 121 H Respiratory Rate Blood Pressure 102/54 O2 Sat by Pulse 100 100 Oximetry O2 Sat by Pulse Oximetry [ Bilateral] 06/25/22 06/25/22 06/25/22 01:21 01:23 01:26 Temperature Pulse Rate 114 H 104 H 113 H Respiratory 18 Rate Blood Pressure 97/50 O2 Sat by Pulse 100 100 Oximetry O2 Sat by Pulse Oximetry [ Bilateral] 06/25/22 06/25/22 06/25/22 01:27 01:31 01:36 Temperature Pulse Rate 107 H 105 H Respiratory Rate Blood Pressure O2 Sat by Pulse 100 100 Oximetry O2 Sat by Pulse 100 Oximetry [ Bilateral] 06/25/22 06/25/22 06/25/22 01:38 01:40 01:41 Temperature Pulse Rate 108 H 101 H 107 H Respiratory Rate Blood Pressure 88/46 92/51 O2 Sat by Pulse 100 Oximetry O2 Sat by Pulse Oximetry [ Bilateral] 06/25/22 06/25/22 06/25/22 01:46 01:51 01:54 Temperature Pulse Rate 122 H 109 H 122 H Respiratory Rate Blood Pressure 88/44 O2 Sat by Pulse 100 100 Oximetry O2 Sat by Pulse Oximetry [ Bilateral] 06/25/22 06/25/22 06/25/22 01:56 02:01 02:06 Temperature Pulse Rate 109 H 109 H 112 H Respiratory Rate Blood Pressure O2 Sat by Pulse 100 100 100 Oximetry O2 Sat by Pulse Oximetry [ Bilateral] 06/25/22 06/25/22 06/25/22 02:08 02:11 02:16 Temperature Pulse Rate 109 H 110 H 120 H Respiratory Rate Blood Pressure 80/41 O2 Sat by Pulse 100 100 Oximetry O2 Sat by Pulse Oximetry [ Bilateral] 06/25/22 06/25/22 06/25/22 02:21 02:23 02:26 Temperature Pulse Rate 119 H 100 H 105 H Respiratory Rate Blood Pressure 117/56 O2 Sat by Pulse 100 100 Oximetry O2 Sat by Pulse Oximetry [ Bilateral] 06/25/22 06/25/22 06/25/22 02:31 02:36 02:38 Temperature Pulse Rate 111 H 111 H 116 H Respiratory Rate Blood Pressure 91/53 O2 Sat by Pulse 100 100 Oximetry O2 Sat by Pulse Oximetry [ Bilateral] 06/25/22 06/25/22 06/25/22 02:41 02:46 02:51 Temperature Pulse Rate 114 H 111 H 99 H Respiratory Rate Blood Pressure O2 Sat by Pulse 100 100 100 Oximetry O2 Sat by Pulse Oximetry [ Bilateral] 06/25/22 06/25/22 06/25/22 02:53 02:56 03:01 Temperature Pulse Rate 101 H 109 H 121 H Respiratory Rate Blood Pressure 101/59 O2 Sat by Pulse 100 100 Oximetry O2 Sat by Pulse Oximetry [ Bilateral] 06/25/22 06/25/22 06/25/22 03:06 03:08 03:11 Temperature Pulse Rate 103 H 109 H 109 H Respiratory Rate Blood Pressure 105/55 O2 Sat by Pulse 100 100 Oximetry O2 Sat by Pulse Oximetry [ Bilateral] 06/25/22 06/25/22 06/25/22 03:16 03:21 03:26 Temperature Pulse Rate 105 H 115 H 111 H Respiratory Rate Blood Pressure O2 Sat by Pulse 100 100 100 Oximetry O2 Sat by Pulse Oximetry [ Bilateral] 06/25/22 06/25/22 06/25/22 03:31 03:36 03:38 Temperature Pulse Rate 109 H 116 H 105 H Respiratory Rate Blood Pressure 116/52 O2 Sat by Pulse 100 100 Oximetry O2 Sat by Pulse Oximetry [ Bilateral] 06/25/22 06/25/22 06/25/22 03:41 03:46 03:51 Temperature Pulse Rate 119 H 110 H 103 H Respiratory Rate Blood Pressure O2 Sat by Pulse 100 100 100 Oximetry O2 Sat by Pulse Oximetry [ Bilateral] 06/25/22 06/25/22 06/25/22 03:56 04:01 04:06 Temperature Pulse Rate 103 H 101 H 104 H Respiratory Rate Blood Pressure O2 Sat by Pulse 100 100 100 Oximetry O2 Sat by Pulse Oximetry [ Bilateral] 06/25/22 06/25/22 06/25/22 04:11 04:16 04:21 Temperature Pulse Rate 106 H 110 H 106 H Respiratory Rate Blood Pressure 106/59 O2 Sat by Pulse 100 100 100 Oximetry O2 Sat by Pulse Oximetry [ Bilateral] 06/25/22 06/25/22 06/25/22 04:26 04:31 04:36 Temperature Pulse Rate 104 H 114 H 100 H Respiratory Rate Blood Pressure O2 Sat by Pulse 100 100 100 Oximetry O2 Sat by Pulse Oximetry [ Bilateral] 06/25/22 06/25/22 06/25/22 04:41 04:45 04:46 Temperature Pulse Rate 107 H 102 H 104 H Respiratory Rate Blood Pressure 123/65 O2 Sat by Pulse 100 99 Oximetry O2 Sat by Pulse Oximetry [ Bilateral] 06/25/22 06/25/22 06/25/22 04:51 04:56 05:01 Temperature Pulse Rate 105 H 106 H 100 H Respiratory Rate Blood Pressure O2 Sat by Pulse 100 99 100 Oximetry O2 Sat by Pulse Oximetry [ Bilateral] 06/25/22 06/25/22 06/25/22 05:06 05:11 05:16 Temperature Pulse Rate 105 H 102 H 102 H Respiratory Rate Blood Pressure 102/55 O2 Sat by Pulse 100 100 100 Oximetry O2 Sat by Pulse Oximetry [ Bilateral] 06/25/22 06/25/22 06/25/22 05:21 05:26 05:31 Temperature Pulse Rate 94 H 98 H 98 H Respiratory Rate Blood Pressure O2 Sat by Pulse 100 100 100 Oximetry O2 Sat by Pulse Oximetry [ Bilateral] 06/25/22 06/25/22 06/25/22 05:36 05:41 05:45 Temperature Pulse Rate 97 H 97 H 100 H Respiratory Rate Blood Pressure 123/59 O2 Sat by Pulse 100 100 Oximetry O2 Sat by Pulse Oximetry [ Bilateral] 06/25/22 06/25/22 06/25/22 05:46 05:51 05:56 Temperature Pulse Rate 100 H 100 H 99 H Respiratory Rate Blood Pressure O2 Sat by Pulse 100 100 100 Oximetry O2 Sat by Pulse Oximetry [ Bilateral] 06/25/22 06/25/22 06/25/22 06:01 06:06 06:11 Temperature Pulse Rate 104 H 102 H 103 H Respiratory Rate Blood Pressure O2 Sat by Pulse 100 99 98 Oximetry O2 Sat by Pulse Oximetry [ Bilateral] 06/25/22 06/25/22 06/25/22 06:16 06:21 06:26 Temperature Pulse Rate 98 H 99 H 96 H Respiratory Rate Blood Pressure 111/57 O2 Sat by Pulse 99 99 99 Oximetry O2 Sat by Pulse Oximetry [ Bilateral] 06/25/22 06/25/22 06/25/22 06:31 06:36 06:41 Temperature Pulse Rate 104 H 115 H 105 H Respiratory Rate Blood Pressure O2 Sat by Pulse 100 98 98 Oximetry O2 Sat by Pulse Oximetry [ Bilateral] 06/25/22 06/25/22 06/25/22 06:46 06:47 06:51 Temperature Pulse Rate 107 H 100 H 101 H Respiratory Rate Blood Pressure 119/58 O2 Sat by Pulse 99 100 Oximetry O2 Sat by Pulse Oximetry [ Bilateral] 06/25/22 06/25/22 06/25/22 06:56 07:01 07:06 Temperature Pulse Rate 97 H 96 H 101 H Respiratory Rate Blood Pressure O2 Sat by Pulse 99 99 98 Oximetry O2 Sat by Pulse Oximetry [ Bilateral] 06/25/22 06/25/22 06/25/22 07:11 07:15 07:16 Temperature Pulse Rate 105 H 97 H 97 H Respiratory Rate Blood Pressure 120/65 O2 Sat by Pulse 98 99 Oximetry O2 Sat by Pulse Oximetry [ Bilateral] - Exam Narrative Exam: Repositioned to left lateral position. Previously examined around 0638 and was 6.5/90/-1. Cardiovascular: Regular rate Lungs: Normal air movement Abdomen: Present: normal appearance, soft Uterus: Present: normal FHR: category 1 Uterine Contraction Monitor Mode: External Uterine Contraction Pattern: Regular Uterine Tone Measurement Phase: Resting Uterine Contraction Intensity: Moderate - Labs Labs: Abnormal Labs 06/24/22 22:20 MCV 76 L MCH 25 L Laboratory Results - last 24 hr 06/24/22 06/24/22 06/24/22 22:20 22:20 22:20 WBC 9.8 RBC 4.05 Hgb 10.1 Hct 30.9 MCV 76 L MCH 25 L MCHC 33 RDW 15.2 Plt Count 218 Syphilis IgG/IgM Ab Nonreactive Blood Type B POSITIVE Antibody Screen Negative
[2022-06-25] MEDS ORDERED: fentaNYL-BUPIV 2 MCG/ML-0.125% 200 MCG/100 ML BAG EPIDURAL SCH (08:00)
--- NOTE | 2022-06-25 08:25 | Event Note ---
Date: 06/25/22 (Vaginal pressure) Pt with c/o more vaginal pressure. Cervical exam /. Pt re-positioned in high fowlers.
[2022-06-25] MEDS ORDERED: LIDOCAINE MPF (2%) 20 MG/1 ML VIAL 5 ML ONE (11:31)
--- NOTE | 2022-06-25 16:43 | Procedure Note ---
OB Delivery Note - Delivery Date of Delivery: 06/25/22 Family Law Specialist: WISAM DEL CID (Proctored by Keturah Fnag) Estimated blood loss: 200cc - Vaginal Delivery presentation: vertex Delivery position: OA Intrapartum events: none Delivery augmentation: pitocin Delivery monitor: external FHT, external uterine Route of delivery: Delivery placenta: spontaneous Delivery cord: 3 umbilical vessels Episiotomy: none Delivery laceration: 1st degree Anesthesia: epidural Delivery comments: of a viable male infant. AGARS 8/. Male born over intact perineum, shoulders delivered without difficulty. placed skin to skin on mom's abdomen. 3 vessel cord clamped and cut by FOB. Placenta delivered intact and complete. Pitocin IV started. Uterine tone adequate. Perineum, vagina, and cervix inspected. 1st degree perineum laceration noted, no repair needed good hemostasis noted. Post delivery pt stable. Apgars 8/9, wt 7#11oz, EBL 200. All counts correct. mother and remain LDR stable. - Infant A at 1 minute: 8 (wgt 7#11oz (Lamar)) at 5 minutes: 9 Infant Gender: Male
[2022-06-25] MEDS ORDERED: diphenhydrAMINE 25 MG CAP PO PRN (18:17)
[2022-06-25] MEDS ORDERED: ACETAMINOPHEN 325 MG TAB PO PRN (18:17)
[2022-06-25] MEDS ORDERED: PROMETHAZINE 25 MG RECT SUPP PR PRN (18:17)
[2022-06-25] MEDS ORDERED: WITCH HAZEL/ GLYCERIN PAD TP PRN (18:17)
[2022-06-25] MEDS ORDERED: PROMETHAZINE 25 MG TAB PO PRN (18:17)
[2022-06-25] MEDS ORDERED: MAGNESIUM HYDROXIDE (MOM) ORAL LIQD UDC PO PRN (18:17)
[2022-06-25] MEDS ORDERED: LANOLIN/ZINC/DIMETHICONE (LANSINOH) 7 GM TP PRN ×2 (18:17)
[2022-06-25] MEDS ORDERED: oxyCODONE /ACETAMINOPHEN 5-325MG TAB PO PRN (18:17)
[2022-06-25] MEDS ORDERED: BENZOCAINE/MENTHOL 20/0.5% TOP SPRAY 56 GM TP PRN (18:17)
[2022-06-25] MEDS ORDERED: ONDANSETRON 4 MG/2 ML INJ IV PRN (18:17)
[2022-06-25] MEDS ORDERED: OXYTOCIN DRIP 30 UNITS/500 ML BAG IV SCH (19:00)
[2022-06-25 21:02] LABS: Hematocrit 31.7 % (30.3-42.9); Hemoglobin 10.1 gm/dl (10.1-14.3); Mean Corpuscular HGB Conc 32 % (30-34); Mean Corpuscular Volume 77 fl (79-97); Platelet Count 263 K/mm3 (140-440); Red Blood Count 4.13 M/mm3 (3.65-5.03); Red Cell Distribution Width 15.1 % (13.2-15.2)
[2022-06-25 21:12] LABS: Alanine Aminotransferase 17 units/L (7-56); Uric Acid 5.6 mg/dL (3.5-7.6)
[2022-06-25] MEDS ORDERED: MAGNESIUM SULFATE 40GM/1000ML 40 GM/1,000 ML BAG IV SCH (23:45)
[2022-06-25] MEDS ORDERED: MAGNESIUM SULFATE 4 GM/100 ML BAG IV ONE (23:52)
[2022-06-26] MEDS ORDERED: LACTATED RINGERS 1,000 ML IV SCH (00:15)
[2022-06-26] MEDS ORDERED: hydrALAZINE 20 MG/1 ML INJ IV ONE (04:25)
[2022-06-26 09:10] LABS: Hematocrit 33.1 % (30.3-42.9); Hemoglobin 10.6 gm/dl (10.1-14.3)
[2022-06-26] MEDS ORDERED: PRENATAL VIT27-FE FUMARATE-FOLIC ACID VIT TAB PO SCH (10:00)
--- NOTE | 2022-06-26 10:11 | Progress Note ---
Assessment and Plan - Patient Problems (1) Pre-eclampsia Current Visit: Yes Status: Acute Plan to address problem: -cont mag -cont bp meds -up to mother baby later tonight after 24hrs of mag completed (2) (normal spontaneous vaginal delivery) Current Visit: Yes Status: Acute Plan to address problem: -routine pp care Subjective - Subjective Date of service: 06/26/22 Principal diagnosis: PPD#1 s/p 2)per E Interval history: Pt doing well no MALIK or blurry vision at this time. Magnesium is infusing. BP stable in mild range. Labetalol ordered to be started this am at 10. Plan of care d/w pt and all questions were addressed and answered. Patient reports: appetite normal, voiding normally, pain well controlled, no dizzy ambulation Davis: doing well Objective - Vital Signs Latest vital signs: Vital Signs Temp Pulse Resp BP Pulse Ox 06/26/22 10:02 92 06/26/22 10:01 95 H 140/83 06/26/22 09:56 88 06/26/22 09:55 144 H 89 06/26/22 09:50 86 06/26/22 09:46 95 H 142/85 06/26/22 09:45 84 06/26/22 09:43 139 H 85 06/26/22 09:40 159 H 86 06/26/22 09:37 163 H 85 06/26/22 09:35 85 06/26/22 09:31 92 H 149/86 06/26/22 09:29 93 06/26/22 09:27 168 H 85 06/26/22 09:23 85 06/26/22 09:19 149 H 87 06/26/22 09:18 154 H 84 06/26/22 09:16 96 H 146/87 06/26/22 09:12 88 06/26/22 09:07 170 H 85 06/26/22 09:02 182 H 84 06/26/22 09:01 99 H 138/80 06/26/22 08:59 144 H 83 L 06/26/22 08:57 83 L 06/26/22 08:52 69 86 06/26/22 08:47 78 L 06/26/22 08:46 100 H 128/74 06/26/22 08:43 73 79 L 06/26/22 08:41 74 L 06/26/22 08:36 78 L 06/26/22 08:35 112 H 81 L 06/26/22 08:31 106 H 131/75 0 L 06/26/22 08:26 141 H 79 L 06/26/22 08:25 88 06/26/22 08:20 197 H 80 L 06/26/22 08:16 108 H 136/76 06/26/22 08:15 50 L 84 06/26/22 08:10 101 H 83 L 06/26/22 08:05 197 H 78 L 06/26/22 08:01 86 137/69 06/26/22 08:00 66 81 L 06/26/22 07:59 78 L 06/26/22 07:55 188 H 79 L 06/26/22 07:54 80 L 06/26/22 07:49 78 L 06/26/22 07:47 136 H 139/68 78 L 06/26/22 07:44 51 L 78 L 06/26/22 07:39 55 L 81 L 06/26/22 07:38 79 L 06/26/22 07:34 173 H 83 L 06/26/22 07:33 58 L 78 L 06/26/22 07:31 96 H 140/78 06/26/22 07:28 181 H 80 L 06/26/22 07:27 73 L 06/26/22 07:22 185 H 77 L 06/26/22 07:20 83 81 L 06/26/22 07:17 81 L 06/26/22 07:16 108 H 148/72 06/26/22 07:15 37 L 77 L 06/26/22 07:12 79 L 06/26/22 07:08 69 100 06/26/22 07:02 77 100 06/26/22 07:01 108 H 147/79 06/26/22 06:56 50 L 96 06/26/22 06:51 96 H 99 06/26/22 06:50 56 L 91 06/26/22 06:47 115 H 164/85 06/26/22 06:46 72 82 L 06/26/22 06:41 82 83 L 06/26/22 06:38 26 L 06/26/22 06:33 86 06/26/22 06:32 110 H 153/74 06/26/22 06:31 83 71 L 06/26/22 06:26 73 72 L 06/26/22 06:21 68 73 L 06/26/22 06:16 112 H 146/113 83 L 06/26/22 06:11 43 L 82 L 06/26/22 06:09 83 L 06/26/22 06:04 112 H 90 06/26/22 06:01 115 H 152/85 06/26/22 05:59 43 L 78 L 06/26/22 05:54 53 L 69 L 06/26/22 05:49 69 77 L 06/26/22 05:47 125 H 160/77 06/26/22 05:43 43 L 67 L 06/26/22 05:38 173 H 63 L 06/26/22 05:37 82 L 06/26/22 05:33 98 H 75 L 06/26/22 05:31 107 H 152/82 68 L 06/26/22 05:16 101 H 152/80 06/26/22 05:12 101 H 84 06/26/22 05:10 56 L 78 L 06/26/22 05:07 101 H 97 06/26/22 05:02 101 H 97 06/26/22 05:01 105 H 150/83 06/26/22 04:57 114 H 96 06/26/22 04:52 108 H 96 06/26/22 04:47 111 H 98 06/26/22 04:46 112 H 145/75 06/26/22 04:42 104 H 99 06/26/22 04:36 102 H 91 06/26/22 04:35 104 H 97 06/26/22 04:31 98 H 157/83 06/26/22 04:30 98 H 100 06/26/22 04:25 115 H 99 06/26/22 04:20 103 H 99 06/26/22 04:15 98 H 99 06/26/22 04:10 93 H 134/73 99 06/26/22 04:05 95 H 99 06/26/22 04:00 99 H 99 06/26/22 03:55 99 H 173/84 100 06/26/22 03:53 95 H 161/81 06/26/22 03:50 100 06/26/22 03:45 115 H 97 06/26/22 03:40 109 H 166/77 100 06/26/22 03:35 110 H 99 06/26/22 03:30 120 H 100 06/26/22 03:25 108 H 166/79 100 06/26/22 03:20 109 H 100 06/26/22 03:15 108 H 99 06/26/22 03:10 122 H 156/96 99 06/26/22 03:05 90 97 06/26/22 03:00 90 99 06/26/22 02:55 113 H 99 06/26/22 02:50 101 H 97 06/26/22 02:45 91 H 100 06/26/22 02:40 93 H 148/81 100 06/26/22 02:35 94 H 100 06/26/22 02:31 110 H 89 06/26/22 02:30 107 H 100 06/26/22 02:25 100 H 175/86 90 06/26/22 02:20 98 H 96 06/26/22 02:15 109 H 98 06/26/22 02:10 99 H 146/74 97 06/26/22 02:05 101 H 99 06/26/22 02:00 99 H 69 L 06/26/22 01:55 102 H 96 06/26/22 01:54 96 H 152/76 06/26/22 01:50 98 H 99 06/26/22 01:49 98 H 150/76 92 06/26/22 01:45 99 H 97 06/26/22 01:44 100 H 149/71 06/26/22 01:42 98 H 94 06/26/22 01:40 98 H 98 06/26/22 01:39 100 H 165/79 06/26/22 01:36 51 L 74 L 06/26/22 01:35 101 H 99 06/26/22 01:34 103 H 145/79 06/26/22 01:30 105 H 98 06/26/22 01:29 105 H 142/99 06/26/22 01:25 104 H 100 06/26/22 01:24 109 H 147/81 06/26/22 01:20 101 H 99 06/26/22 01:19 100 H 141/77 06/26/22 01:15 101 H 100 06/26/22 01:14 100 H 143/81 06/26/22 01:13 103 H 141/73 06/26/22 01:10 93 H 100 06/26/22 01:09 86 06/26/22 01:05 64 83 L 06/26/22 01:03 113 H 80 L 06/26/22 00:58 72 149/74 85 06/26/22 00:54 65 88 06/26/22 00:53 83 L 06/26/22 00:50 95 H 146/67 06/26/22 00:49 89 86 06/26/22 00:48 70 L 06/26/22 00:43 101 H 152/110 87 06/26/22 00:37 197 H 79 L 06/26/22 00:23 79 79 L 06/26/22 00:21 77 L 06/26/22 00:18 72 79 L 06/26/22 00:16 79 L 06/26/22 00:11 80 79 L 06/26/22 00:10 78 L 06/26/22 00:05 79 79 L 06/25/22 23:59 77 79 L 06/25/22 23:54 78 80 L 06/25/22 23:48 90 78 L 06/25/22 23:43 111 H 170/74 06/25/22 23:41 75 83 L 06/25/22 23:35 95 H 82 L 06/25/22 23:34 162 H 84 06/25/22 23:29 91 H 80 L 06/25/22 23:20 75 80 L 06/25/22 23:19 81 L 06/25/22 23:14 93 H 80 L 06/25/22 23:13 120 H 158/74 06/25/22 23:09 79 L 06/25/22 23:08 92 H 81 L 06/25/22 23:04 102 H 81 L 06/25/22 22:58 103 H 159/71 06/25/22 22:55 82 L 06/25/22 22:49 76 L 06/25/22 22:44 82 L 06/25/22 22:43 108 H 164/73 06/25/22 22:39 54 L 81 L 06/25/22 22:38 74 82 L 06/25/22 22:33 77 80 L 06/25/22 22:26 186 H 81 L 06/25/22 22:25 82 L 06/25/22 22:19 53 L 80 L 06/25/22 22:14 79 L 06/25/22 22:13 136 H 143/69 79 L 06/25/22 22:07 131 H 78 L 06/25/22 22:02 50 L 77 L 06/25/22 21:59 113 H 141/77 06/25/22 21:57 118 H 89 06/25/22 21:49 117 H 94 06/25/22 21:48 53 L 83 L 06/25/22 21:44 100 H 96 06/25/22 21:43 98 H 136/75 06/25/22 21:39 98 H 100 06/25/22 21:34 108 H 100 06/25/22 21:33 93 H 157/74 06/25/22 21:29 65 89 06/25/22 21:24 72 L 06/25/22 21:22 65 73 L 06/25/22 21:18 73 L 06/25/22 21:17 77 80 L 06/25/22 21:13 86 06/25/22 21:12 53 L 87 06/25/22 21:08 60 L 06/25/22 21:05 32 L 83 L 06/25/22 21:03 78 L 06/25/22 21:00 68 84 06/25/22 20:58 84 06/25/22 20:53 106 H 82 L 06/25/22 20:52 82 L 06/25/22 20:24 51 L 56 L 06/25/22 20:20 67 90 06/25/22 20:18 79 L 06/25/22 20:11 47 L 79 L 06/25/22 20:06 45 L 89 06/25/22 20:01 60 80 L 06/25/22 20:00 72 L 06/25/22 19:58 106 H 128/66 06/25/22 19:56 96 H 81 L 06/25/22 19:55 79 L 06/25/22 19:44 97 H 98 06/25/22 19:43 113 H 143/76 06/25/22 19:39 111 H 98 06/25/22 19:34 112 H 98 06/25/22 19:33 105 H 138/71 06/25/22 19:22 42 L 69 L 06/25/22 19:17 69 L 06/25/22 19:16 81 95 08/05/22 19:11 105 H 83 L 06/25/22 19:10 83 L 06/25/22 19:06 42 L 83 L 06/25/22 19:01 65 91 06/25/22 19:00 149 H 84 06/25/22 18:56 98 06/25/22 18:55 83 L 06/25/22 18:48 114 H 100 06/25/22 18:43 111 H 132/74 100 06/25/22 18:39 64 L 06/25/22 18:34 85 06/25/22 18:31 52 L 100 06/25/22 18:27 52 L 82 L 06/25/22 18:22 124 H 99 06/25/22 18:17 184 H 87 06/25/22 18:13 122 H 158/79 06/25/22 18:11 90 83 L 06/25/22 18:06 74 161/89 100 06/25/22 18:01 148 H 76 L 06/25/22 17:58 55 L 154/86 100 06/25/22 17:55 76 L 06/25/22 17:50 82 L 06/25/22 17:48 77 87 06/25/22 17:44 67 L 06/25/22 17:42 123 H 159/87 06/25/22 17:39 125 H 151/81 06/25/22 17:37 77 93 06/25/22 17:28 61 86 06/25/22 17:27 126 H 161/75 06/25/22 17:25 187 H 84 06/25/22 17:23 75 88 06/25/22 17:19 68 83 L 06/25/22 17:18 92 H 156/78 82 L 06/25/22 17:14 102 H 82 L 06/25/22 17:13 127 H 166/88 06/25/22 17:09 122 H 99 06/25/22 17:04 120 H 98 06/25/22 16:59 116 H 99 06/25/22 16:58 118 H 163/85 06/25/22 16:54 128 H 100 06/25/22 16:49 120 H 100 06/25/22 16:44 119 H 100 06/25/22 16:42 117 H 145/72 06/25/22 16:39 119 H 99 08/05/22 16:34 123 H 99 06/25/22 16:29 135 H 100 06/25/22 16:28 126 H 155/86 06/25/22 16:24 123 H 99 06/25/22 16:19 124 H 98 06/25/22 16:12 126 H 150/82 06/25/22 15:57 144 H 145/92 06/25/22 15:56 154 H 96 06/25/22 15:51 168 H 98 06/25/22 15:46 151 H 97 06/25/22 15:41 94 H 100 06/25/22 15:36 137 H 158/72 100 06/25/22 15:31 142 H 99 06/25/22 15:28 152 H 92 06/25/22 15:26 137 H 98 06/25/22 15:21 141 H 97 06/25/22 15:16 138 H 99 06/25/22 15:11 133 H 98 06/25/22 15:06 127 H 100 06/25/22 15:01 154 H 98 06/25/22 14:57 155 H 88 06/25/22 14:56 138 H 95 06/25/22 14:51 140 H 98 06/25/22 14:46 138 H 99 06/25/22 14:43 151 H 157/103 06/25/22 14:41 136 H 100 06/25/22 14:36 135 H 100 06/25/22 14:31 142 H 100 06/25/22 14:30 82 70 L 06/25/22 14:28 136 H 138/89 06/25/22 14:26 141 H 99 06/25/22 14:21 136 H 100 06/25/22 14:16 143 H 99 06/25/22 14:11 143 H 99 06/25/22 14:06 98.9 F 134 H 98 06/25/22 14:01 149 H 100 06/25/22 13:58 130 H 137/71 06/25/22 13:56 137 H 97 06/25/22 13:51 138 H 98 06/25/22 13:46 130 H 98 06/25/22 13:43 129 H 132/60 06/25/22 13:41 139 H 100 06/25/22 13:36 126 H 97 06/25/22 13:31 132 H 98 06/25/22 13:29 129 H 139/68 06/25/22 13:26 127 H 100 06/25/22 13:21 123 H 98 06/25/22 13:16 121 H 99 06/25/22 13:13 122 H 127/64 06/25/22 13:11 126 H 100 06/25/22 13:06 125 H 99 06/25/22 13:01 120 H 98 06/25/22 12:58 120 H 123/62 06/25/22 12:57 97.5 F L 06/25/22 12:56 122 H 100 06/25/22 12:51 128 H 99 06/25/22 12:46 120 H 99 06/25/22 12:42 126 H 130/72 06/25/22 12:41 117 H 99 06/25/22 12:36 121 H 97 06/25/22 12:31 118 H 99 06/25/22 12:27 116 H 124/72 06/25/22 12:26 111 H 97 06/25/22 12:21 108 H 97 06/25/22 12:16 112 H 97 06/25/22 12:13 115 H 119/71 06/25/22 12:11 122 H 97 06/25/22 12:06 114 H 97 06/25/22 12:01 119 H 97 06/25/22 11:59 117 H 117/58 06/25/22 11:56 123 H 96 06/25/22 11:51 113 H 97 06/25/22 11:46 117 H 97 06/25/22 11:43 120 H 136/76 06/25/22 11:41 123 H 97 06/25/22 11:36 120 H 98 06/25/22 11:31 122 H 97 06/25/22 11:28 118 H 127/59 06/25/22 11:26 117 H 98 06/25/22 11:21 122 H 98 06/25/22 11:16 117 H 97 06/25/22 11:14 118 H 136/87 06/25/22 11:11 124 H 98 06/25/22 11:06 125 H 99 06/25/22 11:01 120 H 97 06/25/22 10:59 118 H 131/65 06/25/22 10:56 118 H 98 06/25/22 10:51 120 H 98 06/25/22 10:46 119 H 98 06/25/22 10:45 97.5 F L 122 H 18 98 06/25/22 10:44 120 H 133/67 06/25/22 10:41 123 H 98 06/25/22 10:36 128 H 99 06/25/22 10:31 127 H 99 06/25/22 10:29 125 H 143/76 06/25/22 10:26 123 H 98 06/25/22 10:21 118 H 98 06/25/22 10:16 119 H 98 06/25/22 10:12 112 H 131/66 06/25/22 10:11 115 H 98 Intake and Output 06/25/22 06/26/22 06/26/22 22:59 06:59 14:59 Intake Total 850 Output Total 1250 5200 700 Balance -1250 -4350 -700 Intake: Oral 250 Intake, Free Water 600 Output: Urine 1250 5200 700 Indwelling Catheter 5200 700 Void 1250 Other: Total, Intake Amount 250 Total, Output Amount 200 600 700 # Voids Void 1 Estimated Blood Loss 200 - Exam Lungs: Present: Normal air movement Abdomen: Present: normal appearance, soft. Absent: distention, tenderness, guarding Uterus: Present: normal, firm, fundal height below umbilicus. Absent: bogginess, tenderness - Labs Labs: Abnormal lab results 06/25/22 06/25/22 06/26/22 Range/Units 20:11 20:11 07:03 WBC 17.8 H (4.5-11.0) K/mm3 MCV 77 L (79-97) fl MCH 24 L (28-32) pg Magnesium 4.50 H (1.7-2.3) mg/dL Lactate Dehydrogenase 233 H (91-180) units/L
--- NOTE | 2022-06-26 15:03 | Event Note ---
Date: 06/26/22 Pt states she does not want the magnesium restarted due to how it makes her feel. Pt was advised that she needs it for seizure prevention due to dx of preE. She expressed understanding stating she does not wish to re-start the meds at this time. Will cont to closely monitor bps at this time.
[2022-06-26] MEDS ORDERED: TETANUS,DIPH,PERTUSS(ACELL) VACCINE 0.5 ML SYRINGE IM ONE (18:12)
[2022-06-26] MEDS ORDERED: ACETAMINOPHEN 500 MG TAB PO PRN (20:30)
[2022-06-26] MEDS: DOCUSATE SODIUM 100 MG CAP PO SCH ×2 (22:00→23:03)
[2022-06-26] MEDS: IBUPROFEN 800 MG TAB PO SCH ×2 (22:00→23:02)
--- NOTE | 2022-06-26 23:20 | Event Note ---
Date: 06/26/22 Low O2 sats are when pt has monitor off.
[2022-06-27] MEDS: IBUPROFEN 800 MG TAB PO SCH (06:44)
--- NOTE | 2022-06-27 09:26 | Discharge Summary ---
Providers - Providers Date of Admission: 06/24/22 20:06 Date of discharge: 06/27/22 Attending physician: CAMILLE TROY MD 06/25/22 18:17 Consult to [employer] [CONS] Routine Reason For Exam: assistance with , SNS Primary care physician: CAMILLE TROY MD Hospitalization Reason for admission: rupture of membranes Delivery: Procedure details: see delivery notes complications: other (pre eclampsia) [place] baby: male Hospital course: Patient was admitted with artificial rupture of membranes and underwent vaginal delivery. In the period patient was noted to have elevated blood pressures. And was diagnosed with preeclampsia. She was started on magnesium sulfate. She did not complete the full 24 hours infusion of magnesium sulfate secondary to refusing to continue treatment due to how she stated the medication made her feel dull her magnesium levels were completely normal. Patient was continued on oral hypertensives with good control of blood pressures. Patient will be discharged home today on day #2 we will follow-up in the office in 1 week for blood pressure check. Condition at discharge: Good Disposition: 01 HOME / SELF CARE / HOMELESS - Discharge Diagnoses (1) Pre-eclampsia Status: Acute (2) (normal spontaneous vaginal delivery) Status: Acute Plan - Discharge Medications Prescriptions: Lidocain2.5%/Prilocai2.5% [Emla] 2 gm TP ONCE #1 tube labetaloL [Labetalol 200mg TAB] 200 mg PO BID #60 - Provider Discharge Summary Activity: routine, no sex for 6 weeks, no heavy lifting 4 weeks Additional instructions: [] Smoking cessation referral if applicable(refer to patient education folder for contact #) [] Refer to [facility] Booklet Call your doctor immediately for: * Fever > 100.5 * Heavy vaginal bleeding ( >1 pad per hour) * Severe persistent headache * Shortness of breath * Reddened, hot, painful area to leg or breast * Drainage or odor from incision. * Keep incision clean and dry at all times and follow doctor's instructions regarding bathing/showering dcall the office to schedule circumcision - Follow up plan Follow up: CAMILLE TROY MD [Primary Care Provider] - 7 Days
[2022-06-27] MEDS: DOCUSATE SODIUM 100 MG CAP PO SCH (10:29)
[2022-06-27 13:35] VITALS: BP 121/79
== END 2022-06-27 15:19 | disposition home or self-care (01) | DRG 774 ==
LOC: TRG 19:36 → APU 19:37 → TRG 20:06 → LD 21:07 → OB 06-26 21:31
PROVIDERS: ADMIT Student in an Organized Health Care Education/Training Program; ATTEND Student in an Organized Health Care Education/Training Program
PROC: 10E0XZZ Delivery of Products of Conception, External Approach (ICD-10-PCS; principal; 2022-06-25)
PROC: 3E0R3BZ Introduction of Anesthetic Agent into Spinal Canal, Percutaneous Approach (ICD-10-PCS; 2022-06-25)
PROC: 00HU33Z Insertion of Infusion Device into Spinal Canal, Percutaneous Approach (ICD-10-PCS; 2022-06-25)
DX: O99.354 Diseases of the nervous system complicating childbirth (principal); O14.95 Unspecified pre-eclampsia, complicating the puerperium; Z3A.38 38 weeks gestation of pregnancy; Z20.822 Contact with and (suspected) exposure to COVID-19; G43.909 Migraine, unspecified, not intractable, without status migrainosus; O70.0 First degree perineal laceration during delivery; Z37.0 Single live birth
CPT/HCPCS: 36415; 82565; 83615; 83735; 84450; 84460; 84550; 85014; 85018; 85027; 86592; 86850; 86900; 86901; G0378; J3490; J2590; J3475; J7120; U0003